=== PATIENT | female | born 1955 | race Caucasian/White ===

== ENCOUNTER 2016-09-30 06:31 | Emergency (ER) | payer BC ==
[~2016-09-30] VITALS: Ht 170.2 cm; Wt 69.4 kg
[2016-09-30 06:34] VITALS: BP 129/45
[2016-09-30] MEDS ORDERED: NAPROSYN500 MG PO (08:23)
== END 2016-09-30 09:06 | disposition home or self-care (01) ==
LOC: EME 06:31
DX: S93.601A Unspecified sprain of right foot, initial encounter (principal); X50.1XXA Overexertion from prolonged static or awkward postures, initial encounter; Z85.3 Personal history of malignant neoplasm of breast; Z88.0 Allergy status to penicillin
CPT/HCPCS: 73630; 99281; 99284